=== PATIENT | male | born 1975 | race Two or more races ===

== ENCOUNTER 2019-07-08 23:58 | Inpatient (IN) | payer BC, OTHER ==
[~2019-07-08] VITALS: Ht 180.3 cm; Wt 101.7 kg
[2019-07-09] MEDS ORDERED: ONDANSETRON HCL 4 MG/2 ML VIAL ONE (00:29)
[2019-07-09] MEDS ORDERED: MORPHINE SULFATE 4 MG/ML SYR/VIAL ONE (00:29)
[2019-07-09] MEDS ORDERED: MORPHINE SULFATE 4 MG/ML SYR/VIAL IV ONE ×2 (00:30→05:30)
[2019-07-09] MEDS ORDERED: ONDANSETRON HCL 4 MG/2 ML VIAL IV ONE (00:30)
[2019-07-09] MEDS ORDERED: SODIUM CHLORIDE 0.9% 1,000 ML IV ONE ×2 (00:45→01:30)
[2019-07-09 00:59] LABS: Hematocrit 52.3 % (41.0-53.0); Mean Corpuscular Hemoglobin 31.8 pg (28.0-32.0); Mean Corpuscular Hgb Conc. 34.3 g/dL (32.0-36.0); Mean Corpuscular Volume 92.7 fL (80.0-100.0); Platelet Count (auto) 326 10^3/uL (140-450); Red Blood Cells 5.64 10^6/uL (4.5-5.90); Red Cell Distribution Width 14.2 % (11.8-14.3); White Blood Cell 11.1 10^3/uL (4.4-10.8)
[2019-07-09 01:02] LABS: Basophils % (manual) 0 (0.0-2.0); Blast Cells 0; Eosinophils % (manual) 0 (0-7); Metamyelocytes % 0; Myelocytes % 0; Promyelocytes % 0; Reactive Lymphocytes 0
[2019-07-09 01:09] LABS: Alanine Aminotransferase 31 U/L (16-61); Albumin 3.2 g/dL (3.4-5.0); Amylase 61 U/L (25-115); Anion Gap 12 (5-15); Aspartate Aminotransferase 22 U/L (15-37); BUN/Creatinine Ratio 7.5; Blood Urea Nitrogen 8 mg/dL (7-18); Calcium 9.3 mg/dL (8.5-10.1); Carbon Dioxide 22 mmol/L (21-32); Chloride 100 mmol/L (98-107); GFR African American 96 mL/min; GFR Non-African American 79 mL/min; Glucose 152 mg/dL (74-106); Lipase 43 U/L (73-393); Sodium 134 mmol/L (136-145)
[2019-07-09 01:11] LABS: Lactic Acid w/Reflex 2.1 mmol/L (0.4-2.0)
[2019-07-09 01:14] LABS: Alkaline Phosphatase 76 U/L (45-117); Total Protein 9.2 g/dL (6.4-8.2)
[2019-07-09 01:19] LABS: Band Neutrophils % (manual) 1; Lymphocytes % (manual) 1 (10.0-50.0); Monocytes % (manual) 5 (0-12)
[2019-07-09] MEDS ORDERED: ONDANSETRON HCL 4 MG/2 ML VIAL IV PRN (06:15)
[2019-07-09] MEDS ORDERED: TEMAZEPAM 15 MG CAP PO PRN (06:15)
[2019-07-09] MEDS ORDERED: MORPHINE SULFATE 4 MG/ML SYR/VIAL IV PRN (06:15)
[2019-07-09] MEDS ORDERED: SODIUM CHLORIDE 0.9% 500 ML IV ONE (06:15)
[2019-07-09] MEDS ORDERED: ACETAMINOPHEN 325 MG TAB PO PRN (06:15)
[2019-07-09] MEDS ORDERED: TAMSULOSIN HYDROCHLORIDE 0.4 MG CAP PO ONE (06:15)
[2019-07-09 07:47] LABS: Urine Bacteria NONE SEEN /hpf (None Seen); Urine Blood TRACE /uL (Negative); Urine Specific Gravity 1.013 (1.001-1.035); Urine WBC 1 /hpf (0 - 3)
[2019-07-09 08:47] VITALS: BP 155/91
[2019-07-09] MEDS: FAMOTIDINE 20 MG TAB PO SCH ×2 (09:02→21:14)
[2019-07-09] MEDS: HYDROcodone-ACET 5/325MG TAB PO PRN ×3 (09:03→21:14)
[2019-07-09] MEDS ORDERED: MANNITOL FTV 25% 12.5 GM/50 ML 50 ML IV ONE (11:45)
[2019-07-09] MEDS ORDERED: KETOROLAC TROMETH 30 MG/ML 1ML VIAL IV PRN (11:45)
[2019-07-09 12:54] VITALS: BP 150/89
[2019-07-09] MEDS: SODIUM CHLORIDE 0.9% 1,000 ML IV SCH ×2 (14:19→22:47)
[2019-07-09 17:10] VITALS: BP 134/91
[2019-07-09] MEDS ORDERED: TAMSULOSIN HYDROCHLORIDE 0.4 MG CAP PO SCH (18:00)
--- NOTE | 2019-07-09 19:30 | NUR ---
Opening shift note Patient resting in bed with even and unlabored respirations, no distress noted. Instructed patient on POC, fall precautions and to call for assistance as needed. Patient verbalized understanding. Fall precautions in place with bed in lowest locked position with x2 side rails up and call light within reach. Will continue to monitor q1hr & PRN.
[2019-07-09 22:00] VITALS: BP 146/86
--- NOTE | 2019-07-09 22:50 | NUR ---
Patient requested sleeping medication Educated patient on side effects and safety precautions of ordered medication. Patient verbalized understanding. Call light within reach. Bed alarm turned on for safety.
--- NOTE | 2019-07-10 01:05 | NUR ---
Patient resting in bed with even and unlabored respirations, no distress noted. Call light within reach. Will continue to monitor q1hr & PRN.
[2019-07-10 05:30] VITALS: BP 117/74
[2019-07-10] MEDS: SODIUM CHLORIDE 0.9% 1,000 ML IV SCH ×2 (06:10→11:13)
--- NOTE | 2019-07-10 06:46 | NUR ---
Closing note; care endorsed to IFEANYI Roman. patient resting in bed with even and unlabored respirations, no distress noted. Fall precautions in place with bed in lowest locked position with call light within reach.
[2019-07-10 06:52] LABS: Basophils # (auto) 0 uL; Basophils % (auto) 0.4 % (0.0-2.0); Eosinophils # (auto) 0.2 uL; Eosinophils % (auto) 2.4 % (0.0-7.0); Lymphocytes % (auto) 16.5 % (10.0-50.0); Mean Corpuscular Hemoglobin 32.1 pg (28.0-32.0); Mean Corpuscular Hgb Conc. 34.1 g/dL (32.0-36.0); Mean Corpuscular Volume 94.2 fL (80.0-100.0); Monocytes # (auto) 0.7 uL; Monocytes % (auto) 10.6 % (0.0-12.0); Neutrophils # (auto) 4.4 uL; Neutrophils % (auto) 70.1 % (37.0-80.0); Nucleated Red Blood Cells % 0.1 %; Platelet Count (auto) 258 10^3/uL (140-450); Red Blood Cells 4.99 10^6/uL (4.5-5.90); Red Cell Distribution Width 14.5 % (11.8-14.3); White Blood Cell 6.3 10^3/uL (4.4-10.8)
[2019-07-10 07:08] LABS: Calcium 8.2 mg/dL (8.5-10.1); Potassium 4.2 mmol/L (3.5-5.1)
[2019-07-10 07:10] LABS: BUN/Creatinine Ratio 7.4
[2019-07-10 08:00] VITALS: BP 139/76
[2019-07-10] MEDS: FAMOTIDINE 20 MG TAB PO SCH (09:21)
[2019-07-10 09:40] VITALS: BP 139/76
--- NOTE | 2019-07-10 13:40 | NUR ---
patient discharged home. all iv access discontinued. no telemetry. all discharge instructions given. all discharge paperwork signed
== END 2019-07-10 12:15 | disposition home or self-care (01) | DRG 694 ==
LOC: ER 07-09 → OVERFLOW 07-09 00:01 → CENTRAL 07-09 08:22
PROVIDERS: ADMIT Nurse Practitioner; ATTEND Internal Medicine
DX: N20.2 Calculus of kidney with calculus of ureter (principal); D72.829 Elevated white blood cell count, unspecified; K76.0 Fatty (change of) liver, not elsewhere classified; E66.9 Obesity, unspecified; K21.9 Gastro-esophageal reflux disease without esophagitis; Z68.31 Body mass index [BMI] 31.0-31.9, adult; Z80.3 Family history of malignant neoplasm of breast; Z82.0 Family history of epilepsy and other diseases of the nervous system; Z82.49 Family history of ischemic heart disease and other diseases of the circulatory system; Z87.442 Personal history of urinary calculi
CPT/HCPCS: 36415; 74176; 80048; 80053; 81001; 82150; 83605; 83690; 84484; 85007; 85025; 85027; 87040; 96361; 96365; 96375; G0378; J1885; J2405